=== PATIENT | male | born 1975 | race Caucasian/White ===

== ENCOUNTER 2025-05-01 16:08 | Day surgery (SDC) | payer BC, SELFPAY ==
[2025-05-01] VITALS (7 sets, daily range): BP systolic 129–148; BP diastolic 90–108; BMI 26.7; BMI 27.3
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
[2025-05-01] MEDS: TORADOL 15 MG IV (12:24)
[2025-05-01] MEDS: ZOFRAN 4 MG IV (12:25)
[2025-05-01 12:34] LABS: % Basophils 0.9 % (0-2); % Eosinophils 4.6 % (0-6); % Immature Granulocytes 0.2 % (0-0.5); % Lymphocytes 27.6 % (20.5-51.1); % Monocytes 5.8 % (1.7-9.3); % Neutrophils 60.9 % (42.2-75.2); Absolute Basophils 0.1 10^3/uL (0-0.2); Absolute Eosinophils 0.5 10^3/uL (0-0.7); Absolute Lymphocytes 2.8 10^3/uL (1.2-3.4); Absolute Monocytes 0.6 10^3/uL (0.1-0.6); Absolute Neutrophils 6.2 10^3/uL (1.4-6.5); Hematocrit 45.5 % (39.0-52.0); Mean Corpuscular Hgb 28.9 pg (27.0-31.0); Mean Corpuscular Volume 87.7 fL (80.0-94.0); Mean Platelet Volume 8.5 fL (7.4-10.4); Nucleated Red Blood Cells % 0 % (-); Platelet Count 453 10^3/uL (130-400); Red Blood Cell Count 5.19 10^6/uL (4.70-6.10); Red Cell Dist. Width 12.7 % (11.5-14.5); White Blood Cell Count 10.2 10^3/uL (4.8-10.8)
[2025-05-01 12:43] LABS: Lactic Acid 1.5 mmol/L (0.7-2.0)
[2025-05-01 12:56] LABS: ALT (SGPT) 37 U/L (0-50); AST (SGOT) 26 U/L (17-59); Albumin 4.4 g/dl (3.5-5.0); Alkaline Phosphatase 92 U/L (38-126); Blood Urea Nitrogen 13 mg/dl (9-20); Calcium 9.5 mg/dl (8.4-10.2); Carbon Dioxide 25 mmol/L (22-30); Chloride 107 mmol/L (98-107); Estimated Creatinine Clearance 105 ml/min; Glucose 92 mg/dl (70-99); Potassium 4.8 mmol/L (3.5-5.1); Sodium 141 mmol/L (135-145); Total Bilirubin 0.3 mg/dl (0.2-1.3); Total Protein 7.2 g/dl (6.3-8.2); eGFR > 60.00
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
--- NOTE | 2025-05-01 16:38 | CM ---
Patient seen at bedside in ED. Patient is OBS and CM reviewed form and signed form given to community midwife for scanning. Patient stated that he lives with his and daughter in a 2 story home with no needs. Patient PCP is with [facility] and
patient recently was seen by the physician there but does not remember his name. Patient uses the [facility] in [place] for pharmacy needs. Patient plan is for discharge home with no needs at discharge. CM will continue to follow for discharge planning
needs.
Plan; home with no needs.
--- NOTE | 2025-05-01 17:09 | EDRN ---
this RN called the receiving unit and notified them that paper report was going to be tubed up
[2025-05-01] MEDS: TORADOL 10 MG IV ×2 (17:57→23:13)
[2025-05-01] MEDS: TYLENOL 650 MG PO ×2 (17:59→21:04)
--- NOTE | 2025-05-01 18:21 | PTCARENOTE ---
Pt was received from ED at 1735. Pt ambulated to the room independently. Pt is AAOx3, VSS. Reporting right groin pain 4/10. Tolerable per pt. Reviewed available pain medications. Medicated with scheduled Toradol and Tylenol.
[2025-05-01] MEDS: NSS 1000 IV (23:35)
[2025-05-02] VITALS (7 sets, daily range): BP systolic 90–153; BP diastolic 56–97
[2025-05-02] MEDS: TYLENOL 650 MG PO ×4 (01:01→14:21)
[2025-05-02] MEDS: TORADOL 10 MG IV ×2 (05:00→10:59)
--- NOTE | 2025-05-02 10:22 | W.SUR.PREOP ---
Pre-Operative Surgical Note
-
I have examined this patient prior to the performance of the scheduled procedure.
The patient's condition is unchanged from the time of the current History and
Physical and the patient is able to undergo the scheduled procedure.
--- NOTE | 2025-05-02 13:15 | W.IMMPOSTOP ---
Surgical Immed Post Op Note
-
Primary Surgeon: Frank Dumas MD
Assisting Surgeon: None
Pre-op Diagnosis: Incarcerated right inguinal hernia
Post-op Diagnosis: Same
Procedure Performed: Robotic incarcerated right inguinal hernia repair with mesh.
Anesthesia Type: General
Specimen / Cultures: None
Estimated Blood Loss: 11 cc
Complications: None
Operative Findings: Large indirect right inguinal hernia. Bowel reduced prior to OR. The bowel was run using 2 Cardier graspers and after confirming no injury to the underlying bowel the hernia was repaired in the standard fashion using an
extra-large right Bard 3D max uncoated mid weight polypropylene mesh.
POST OP PLAN:
Anticipate discharge home later today.
--- NOTE | 2025-05-02 13:22 | OR.RPT ---
Operative Report
Operative Report
Patient Name: Jose Villafana
: 1975
Date of Operation: 05/02/2025
Preoperative Diagnosis incarcerated right inguinal hernia
Postoperative Diagnosis: Same
Procedure(s):
Robotic incarcerated right inguinal Hernia Repair with mesh, (CHRIS approach)
Surgeon(s):
Dr. Dumas
Roof Shingler(s):
SAMMIE Masters
Anesthesia: General
Estimated Blood Loss: 11 cc
Urine Output: None
Drains/Lines/Implants: XLarge 3D Max Bard mid weight uncoated polypropylene mesh
Specimens: None
Indication for surgery: The patient has a history of groin pain and noted on exam to have an incarcerated right inguinal hernia which was reduced prior to the operating room. Following review of therapeutic options they have elected to undergo a
minimally invasive repair.
Operative Findings: Large indirect right inguinal hernia. Bowel reduced prior to OR. The bowel was run using 2 Cardier graspers and after confirming no injury to the underlying bowel the hernia was repaired in the standard fashion using an
extra-large right Bard 3D max uncoated mid weight polypropylene mesh.
Details of the operation:
The patient was brought to the Operating Room and placed in the supine position with the arms tucked. IV antibiotics were infused and Venodyne stockings placed. Following uneventful induction of general endotracheal anesthesia, an orogastric tube
was placed. The abdomen was prepped and draped in the usual sterile fashion. The abdomen was entered using a Veress technique which required 1 pass, pneumoperitoneum to 15 mmHg was obtained without difficulty. An 8mm trochar was passed through the
abdominal wall roughly 20 cm cephalad to the inguinal canal. We then confirmed that no inadvertent injury was made while passing the trocar or Veress needle. We then placed two additional 8 mm ports in the left upper and right upper quadrants. We
then docked the robot with a Prograsper in the left hand port and monopolar scissors in the right. A large right inguinal hernia in the indirect space was noted. No hernia was noted on the contralateral side. We then began by creating a flap at
the level of the ASIS laterally working our way medially to the medial umbilical fold. Staying onto the peritoneum we were able to circumferentially dissect around the hernia sac and and peel it off of the underlying spermatic cord and testicular
vessels, taking care to preserve them. Medially we identified the midline pubis as well as Constantino's ligament and ensured to dissect 2 cm below the pubic rim over the bladder. After exposure of the entire myopectineal orifice we identified and
reduced: A large sized indirect inguinal hernia, no direct inguinal hernia, no femoral hernia, and no true cord lipoma was identified though the testicular packet was robust
We then fixated an Xlarge 3D max mesh with a 2-0 Vicryl stitch at coopers medially and superior laterally. The flap was then closed with a running 2-0 barbed monocryl suture ensuring that the tail was cut flush with the medial fat pad so that no
barbs were exposed. The hernia sac was tacked to the flap closure. During the closure of the flap an Angiocath was inserted and 20 cc of quarter percent Marcaine was instilled. The area in the flap cavity was then evacuated of air confirming that
the mesh was flush and there were no folds. All needles and instruments were then removed and the robot was undocked. The abdomen was then desufflated, and pneumoperitoneum evacuated. All skin sites were then closed with 4-0 Monocryl followed by
Dermabond. Counts were correct and overall, the patient tolerated the procedure well and was taken to the Recovery Room postoperatively in stable condition.
I was the attending physician and performed the procedure with assistance of the LEAD TECHNICAL ARCHITECT above. I was present for all portions of the case, excluding skin closure.
Frank Dumas MD
[2025-05-02] MEDS: ZOFRAN 4 MG IV (13:57)
[2025-05-02] MEDS: DILAUDID 0.5 MG IV ×2 (14:02→14:18)
[2025-05-02] MEDS: TYLENOL PO (14:05)
--- NOTE | 2025-05-02 14:37 | PTCARENOTE ---
pt back from OR s/p Robotic incarcerated right inguinal hernia repair with mesh. pt w/ 4 lap sites and 1 poke site w. surgical glue intact. pt is AAO*3, Vss, room air. c/o pain 06/19. pain meds given in PACU prior to bringing pt up to the floor. call
abraham within the reach. pt on regular diet. at the bedside updated.
[2025-05-02] MEDS: NSS 1000 IV (14:40)
== END 2025-05-02 16:33 | disposition home or self-care (01) ==
LOC: PACU 16:08
PROVIDERS: Physician Assistant; ATTENDING PHYSICIAN Surgery; EMERGENCY PHYSICIAN Emergency Medicine
DX: K40.30 Unilateral inguinal hernia, with obstruction, without gangrene, not specified as recurrent (principal); F17.200 Nicotine dependence, unspecified, uncomplicated; K59.00 Constipation, unspecified; Z90.49 Acquired absence of other specified parts of digestive tract
CPT/HCPCS: 49650; 74177; 80053; 83605; 85025; 96374; 96375; 99284; C1781; Q9967